=== PATIENT | male | born 1945 | race Caucasian/White ===

== ENCOUNTER 2016-11-09 08:00 | Emergency (ER) | payer OTHER ==
[~2016-11-09] VITALS: Ht 162.6 cm; Wt 71.7 kg
[2016-11-09] MEDS ORDERED: AMLODIPINE BESYL5 M1 PO (08:37)
[2016-11-09] MEDS ORDERED: BENICAR40 M1 PO (08:37)
[2016-11-09] MEDS ORDERED: ASPIRIN EC81 M1 PO (08:38)
[2016-11-09] MEDS ORDERED: PRAVASTATIN SOD10 M2 PO (08:38)
--- NOTE | 2016-11-09 08:39 | ED INFLUENZA/URI COMPLAINT ---
History of Present Illness General Chief Complaint: Upper Respiratory Sx/Fever Stated Complaint: FEVER,COUGH,CONGESTION Source: patient Exam Limitations: no limitations Vital Signs & Intake/Output Vital Signs & Intake/Output Vital Signs Date Time Temp Pulse Resp B/P Pulse O2 O2 Flow FiO2 Ox Delivery Rate 11/09 0947 98.9 98 18 140/77 97 Room Air 11/09 0829 96 Room Air 11/09 0806 99.4 98 16 145/89 97 Room Air Allergies Coded Allergies: NO KNOWN ALLERGIES (04/30/12) Reconcile Medications Albuterol Sulfate (Proair Hfa) 90 MCG HFA.AER.AD 2 PUF INH Q4-6 PRN PRN WHEEZING Amlodipine Besylate 5 MG TABLET 1 TAB PO DAILY HEART (Reported) Aspirin (Ecotrin*) 81 MG TABLET.DR 1 TAB PO DAILY HEART HEALTH (Reported) Azithromycin (Zithromax) 250 MG TABLET 1 DP PO AD BRONCHITIS 2 the first day followed by 1 for days 2-5 Olmesartan Medoxomil (Benicar) 40 MG TABLET 1 TAB PO DAILY HEART (Reported) Pravastatin Sodium 10 MG TABLET 1 TAB PO DAILY CHOLESTEROL (Reported) Prednisone 20 MG TABLET 2 TAB PO DAILY SHORTNESS OF BREATH Triage Note: 70 Y/O MALE C/O MULTIPLE WEEK HISTORY OF "FEVERS IN THE NIGHT", COUGHING AND INTERMITTENT NAUSEA. STATES LAST NIGHT WAS "BAD". TOOK TYLENOL DURING THE NIGHT WITH SOME RELIEF, TEMP 99.4 IN TRIAGE. STATES HE IS COUGHING UP "WHITE" PHLEGM. SPEAKING CLEARLY WITH NO DISTRESS NOTED, SAT 96% Triage Nurses Notes Reviewed? yes HPI: 70 YO male, cough, sputum, weakness, fever 101.3, chills, nausea, dry heaving, diaphoresis the last 3 days. sx are severe. no sick contacts . OTC meds w minimal relief. hx of multiple myeloma and CAD. no modifying factors. (WILL DAO) Past History Travel History Traveled to [place] past 21 day No Medical History Any Pertinent Medical History? see below for history Neurological: NONE EENT: NONE Cardiovascular: TRIPLE BYPASS Respiratory: NONE Gastrointestinal: NONE Hepatic: NONE Renal: NONE Musculoskeletal: NONE Psychiatric: NONE Endocrine: NONE Blood Disorders: multiple myeloma Cancer(s): NONE VAPOR COATER/Reproductive: NONE Surgical History Surgical History: non-contributory Psychosocial History What is your primary language Sammarinese Tobacco Use: Never used Family History Hx Contributory? No (WILL DAO) Review of Systems Review of Systems Constitutional: Reports: see HPI. EENTM: Reports: see HPI. Respiratory: Reports: see HPI. Cardiovascular: Reports: no symptoms. GI: Reports: no symptoms. Genitourinary: Reports: no symptoms. Musculoskeletal: Reports: no symptoms. Skin: Reports: no symptoms. Neurological/Psychological: Reports: no symptoms. Hematologic/Endocrine: Reports: no symptoms. Immunologic/Allergic: Reports: no symptoms. All Other Systems: Reviewed and Negative (WILL DAO) Physical Exam Physical Exam Ears, Nose, Throat: normal ENT inspection, moist mucous membrane, hearing grossly normal, Tympanic normal, pharynx normal Comments: Well-developed well-nourished person in no acute distress HEENT: Normal EENT exam, extraocular motion intact, no nystagmus. Pupils equally round and reactive to light. Nose is atraumatic. External auditory canal and Tympanic membranes clear. Pharynx normal. No swelling or edema. Neck: Supple, no lymphadenopathy, normal range of motion without pain or tenderness Back: Nontender, no CVA tenderness. Full range of motion Cardiovascular: Regular rate and rhythms no murmurs, normal JVP Respiratory: Chest nontender. No respiratory distress. Positive mild to moderate wheezing bilaterally, right greater than left Abdomen: Soft, nontender nondistended, no appreciable organomegaly. Normal bowel sounds. No ascites Extremity: No edema, no calf tenderness to palpation, normal and equal pulses. Neuro: Alert oriented x3, motor sensory normal, cranial nerves II through XII grossly intact. Skin: No appreciable rash on exposed skin, skin is warm and dry. Psych: Mood and affect is normal, memory and judgment is normal. Core Measures Severe Sepsis Present: No Septic Shock Present: No (WILL DAO) Progress Differential Diagnosis: influenza, meningitis, neutropenia, otitis, pneumonia, pharyngitis, sinusitis Plan of Care: Orders Procedure Date/time Status XRY-CHEST XRAY, PA AND LATERAL 11/09 0842 Active Diagnostic Imaging: Viewed by Me: Radiology Read. Discussed w/RAD: Radiology Read. CXR Impression: PATIENT: WILL STUART PRESENT AGE: 70 PATIENT ACCOUNT NO: [id number] : 47 LOCATION: [facility] ORDERING PHYSICIAN: WILL GUZMAN SERVICE DATE: 11/09/16 EXAM TYPE: RAD - XRY-CHEST XRAY, PA AND LATERAL EXAMINATION: XR CHEST CLINICAL INFORMATION: Cough and fever. COMPARISON: Chest x-ray of 04/07/2016 TECHNIQUE: 2 views of the chest were obtained. FINDINGS: The cardiomediastinal silhouette is normal. The sternotomy wires are intact and unchanged in configuration. Note is again made of mediastinal surgical clips. The lungs are normally and symmetrically expanded. The lungs are clear. No pleural effusions or pneumothorax. The visualized soft tissues and upper abdomen are unremarkable. Mild degenerative changes in the mid to lower thoracic spine are stable. IMPRESSION: No radiographic evidence of pneumonia. No acute pulmonary process. No significant interval change is noted compared to the last study. DICTATED BY: WAQAR VELASCO MD DATE/TIME DICTATED:11/09/16857 ACCESS DATABASE DEVELOPER:GLADYS DATE/TIME TRANSCRIBED: Initial ED EKG: none Comments: tx w abx for bronchitis (WILL DAO) Departure Departure Disposition: HOME OR SELF CARE Condition: Stable Clinical Impression Primary Impression: Bronchitis Referrals: ROXANNE TOSCANO,JO Craft (PCP/Family) Additional Instructions: Take antibiotics for your infection as directed. If no better in the next 1-2 days, if he starts to get more wheezing and shortness of breath, start the prednisone. Use [id number] multisystem cold medication as needed. Motrin and Tylenol as needed for fever. Drink plenty of fluids. Return or follow-up with your doctor if not better in the next 5-7 days or if you're having continued worsening fevers, nausea, vomiting, shortness of breath, abdominal pain, difficulty swallowing or drinking or worsening flulike illness. Departure Forms: Customer Survey General Discharge Information Prescriptions: Current Visit Scripts Azithromycin (Zithromax) 1 DP PO AD #6 TAB 2 the first day followed by 1 for days 2-5 Albuterol Sulfate (Proair Hfa) 2 PUF INH Q4-6 PRN PRN WHEEZING #1 INHAL Prednisone 2 TAB PO DAILY #10 TAB (WILL DAO) PA/CEMENTER HELPER Co-Sign Statement Statement: ED Attending supervision documentation- [X] I saw and evaluated the patient. I have also reviewed all the pertinent lab results and diagnostic results. I agree with the findings and the plan of care as documented in the PA's/CEMENTER HELPER's documentation. [] I have reviewed the ED Record and agree with the PA's/CEMENTER HELPER's documentation. [] Additions or exceptions (if any) to the PAs/CEMENTER HELPER's note and plan are summarized below: [] (DAYTON SANDOVAL DO)
--- NOTE | 2016-11-09 09:04 | RADIOLOGY REPORT ---
EXAMINATION: XR CHEST CLINICAL INFORMATION: Cough and fever. COMPARISON: Chest x-ray of 04/07/2016 TECHNIQUE: 2 views of the chest were obtained. FINDINGS: The cardiomediastinal silhouette is normal. The sternotomy wires are intact and unchanged in configuration. Note is again made of mediastinal surgical clips. The lungs are normally and symmetrically expanded. The lungs are clear. No pleural effusions or pneumothorax. The visualized soft tissues and upper abdomen are unremarkable. Mild degenerative changes in the mid to lower thoracic spine are stable. IMPRESSION: No radiographic evidence of pneumonia. No acute pulmonary process. No significant interval change is noted compared to the last study.
[2016-11-09] MEDS ORDERED: ZITHROMAX250 M2 PO (09:23)
[2016-11-09] MEDS ORDERED: PREDNISONE20 M1 PO (09:23)
[2016-11-09] MEDS ORDERED: PROAIR HFA8.5 GM INH (09:23)
[2016-11-09 09:47] VITALS: BP 140/77
== END 2016-11-09 09:47 ==
LOC: ERH 08:00
DX: J40 Bronchitis, not specified as acute or chronic (principal)